=== PATIENT | male | born 2000 ===

== ENCOUNTER 2023-05-18 08:48 | Day surgery (SDC) | payer BC ==
[2023-05-16 12:59] VITALS: BMI 22.6
[2023-05-18] MEDS ORDERED: Fentanyl 250 MCG/5 ML VIAL ONE (09:18)
[2023-05-18] MEDS ORDERED: ePHEDrine Sulfate 50 MG/10 ML VIAL ONE (10:33)
[2023-05-18] MEDS ORDERED: Lidocaine 1% PF 5 ML VIAL ONE (10:33)
[2023-05-18] MEDS ORDERED: Dexamethasone 20 MG/5 ML VIAL ONE (10:33)
[2023-05-18] MEDS ORDERED: Ondansetron PF 4 MG/2 ML Vial ONE (10:33)
[2023-05-18] MEDS ORDERED: PROPOFOL 200 MG/20 ML VIAL ONE (10:33)
[2023-05-18] MEDS ORDERED: Acetaminophen 500 MG TAB ONE (10:41)
[2023-05-18] MEDS ORDERED: Ferric Subsulfate 8 ML TOPICAL SOLN ONE (11:48)
[2023-05-18] MEDS ORDERED: fentaNYL 50 mcg/mL 1 mL Vial ONE ×2 (12:38→12:51)
[2023-05-18] MEDS ORDERED: Hydrocodone-Acetamin 15 ML UDCUP ONE (14:44)
== END 2023-05-18 14:55 | disposition home or self-care (01) ==
LOC: SDC 08:48
PROVIDERS: ATTEND Specialist
PROC: 0CBPXZZ Excision of Tonsils, External Approach (ICD-10-PCS; principal; 2023-05-18)
DX: J35.1 Hypertrophy of tonsils (principal); G47.33 Obstructive sleep apnea (adult) (pediatric); J35.8 Other chronic diseases of tonsils and adenoids
CPT/HCPCS: 88304; J1100; J2405; J2704; J3010